=== PATIENT | female | born 1990 | race Caucasian/White ===

== ENCOUNTER → 2023-10-17 14:09 | Outpatient (REF) | payer OTHER, SELFPAY | LOC: RAD 14:09 | PROVIDERS: ATTENDING PHYSICIAN Obstetrics & Gynecology; FAMILY PHYSICIAN Family Medicine | DX: O26.859 Spotting complicating pregnancy, unspecified trimester (principal) | CPT/HCPCS: 76801 ==

== ENCOUNTER → 2024-02-12 10:39 | Outpatient (REF) | payer OTHER, SELFPAY | LOC: PNTC 10:39 | PROVIDERS: ATTENDING PHYSICIAN Obstetrics & Gynecology | DX: O24.419 Gestational diabetes mellitus in pregnancy, unspecified control (principal) | CPT/HCPCS: 76816 ==

== ENCOUNTER → 2024-02-13 09:50 | Outpatient (REF) | payer OTHER, SELFPAY ==
--- NOTE | 2024-02-13 10:25 | PN.DIAED06 ---
Meal Plan - Gestational
- Breakfast
Gestational Diabetes Meal Plan Name: 1800 calories
Breakfast - Total Carbohydrate (grams): 30
Breakfast - Starch Carbohydrate: 1
Breakfast - Fruit Carbohydrate: 0
Breakfast - Milk Carbohydrate: 1
Breakfast - Nonstarchy Vegetables: Yes
Breakfast - Meat/Protein: 1
Breakfast - Fat: 2
- Morning Snack
Morning Snack - Total Carbohydrate (grams): 30
Morning Snack - Starch Carbohydrate: 1
Morning Snack - Fruit Carbohydrate: 0
Morning Snack - Milk Carbohydrate: 1
Morning Snack - Nonstarchy Vegetables: Yes
Morning Snack - Meat/Protein: 0.5
Morning Snack - Fat: 0
- Lunch
Lunch - Total Carbohydrate (grams): 45
Lunch - Starch Carbohydrate: 2
Lunch - Fruit Carbohydrate: 1
Lunch - Milk Carbohydrate: 0
Lunch - Nonstarchy Vegetables: Yes
Lunch - Meat/Protein: 2
Lunch - Fat: 1
- Afternoon Snack
Afternoon Snack - Total Carbohydrate (grams): 30
Afternoon Snack - Starch Carbohydrate: 1
Afternoon Snack - Fruit Carbohydrate: 1
Afternoon Snack - Milk Carbohydrate: 0
Afternoon Snack - Nonstarchy Vegetables: Yes
Afternoon Snack - Meat/Protein: 1
Afternoon Snack - Fat: 0
- Dinner
Dinner - Total Carbohydrate (grams): 45
Dinner - Starch Carbohydrate: 2
Dinner - Fruit Carbohydrate: 0
Dinner - Milk Carbohydrate: 1
Dinner - Nonstarchy Vegetables: Yes
Dinner - Meat/Protein: 2
Dinner - Fat: 2
- Evening Snack
Evening Snack - Total Carbohydrate (grams): 30
Evening Snack - Starch Carbohydrate: 1
Evening Snack - Fruit Carbohydrate: 0
Evening Snack - Milk Carbohydrate: 1
Evening Snack - Nonstarchy Vegetables: Yes
Evening Snack - Meat/Protein: 1
Evening Snack - Fat: 1
--- NOTE | 2024-02-13 11:10 | PN.DIAED02 ---
Referral
Referred For: Gestational Diabetes Self-Management Training
PHI Release Authorization Form Signed: Yes
Care Plan
- Education Needs
Patient Education Needs: Preconception care//gestational diabetes management
Recommended Diabetes Training Program based on assessment: Gestational Diabetes Management
- Plan of Care
Plan of Care:
Kayley in today for new diagnosis GDM. EDC [birth year], female. 15 yr old,male and 3 yr old male at home. Discussed what is occuring in her body and importance to keep blood sugars well controlled to avoid complications (hypoglycemia, macrosomia).
States her insurance prefers the One Touch Verio Flex glucometer. Provided with and instructions given on the One Touch. Good return demonstration with result of 79 mg/dl, hrs post snack of 2 sweet pickles. Aware of proper testing technique, lancing
device set at 3. Discussed testing pattern- AC and 2 hr pp every meal as well expected results- FBS <95 mg/dl and 2 hr pp < 120 mg/dl. To call Lani at [facility] every Monday with results, phone number provided as well as log sheet to
record her results. She is aware that if testing 1 hr post meal that result should be <140 mg/dl and to record this on log sheet. Discussed macronutrients and importance of eating well balanced meals. 5'7', 135# pre , current weight
145-150#. Provided with 1800 cherelle ADA GDM meal plan and reviewed current eating preferences. Suggest adding a protein to breakfast when she consumes a bagel,, and to read nutritional fact label of bagel to see the quantity that fits into the meal
plan. Some mornings she may have an egg, to add a CHO to this meal. Typically has a salad with lunch, and some tortilla chips, will add fruit. Dinners are typically a protein, starch and vegetable. She is active and most days takes 3 walks, each
lasting approximately 30 minutes. She also will use 5# weights for her arms. Kayley is aware that having GDM puts her at risk for developing T2DM in the future, expected FBS result given. Discussed the need in some women for insulin as the
develops and phone number provided for any follow up questions.
== END ==
LOC: DES 09:50
PROVIDERS: ATTENDING PHYSICIAN Obstetrics & Gynecology
DX: O24.419 Gestational diabetes mellitus in pregnancy, unspecified control (principal)
CPT/HCPCS: 99078

== ENCOUNTER 2024-03-07 18:16 | Inpatient (IN) | payer OTHER, SELFPAY ==
[2024-03-07 12:06] VITALS: BP 102/63
[2024-03-07] MEDS: NSS 1000 IV ×2 (13:21→14:46)
[2024-03-07 13:35] LABS: Urine Albumin Trace (Neg - Trace); Urine Bilirubin Negative (Negative); Urine Character Clear (Clear); Urine Color Yellow; Urine Glucose Negative (Negative); Urine Ketone 3+ (Negative); Urine Leukocyte Trace (Negative); Urine Nitrite Negative (Negative); Urine Occult Blood Negative (Negative); Urine Specific Gravity 1.015 (<1.030); Urine Urobilinogen Negative (Neg - 1+)
[2024-03-07 13:49] LABS: % Basophils 0.3 % (0-2); % Immature Granulocytes 0.9 % (0-0.5); % Lymphocytes 6.2 % (20.5-51.1); % Neutrophils 82.6 % (42.2-75.2); Absolute Immature Granulocytes 0.1 10^3/uL (0-0.05); Absolute Lymphocytes 0.7 10^3/uL (1.2-3.4); Absolute Monocytes 1.1 10^3/uL (0.1-0.6); Absolute Neutrophils 9.3 10^3/uL (1.4-6.5); Mean Corp Hgb Conc. 34.4 g/dL (33.0-37.0); Mean Corpuscular Hgb 28.4 pg (27.0-31.0); Mean Corpuscular Volume 82.5 fL (81.0-99.0); Nucleated Red Blood Cells % 0 %; Platelet Count 179 10^3/uL (130-400); Red Blood Cell Count 3.88 10^6/uL (4.20-5.40); Red Cell Dist. Width 14.4 % (11.5-14.5); White Blood Cell Count 11.2 10^3/uL (4.8-10.8)
[2024-03-07 13:54] LABS: Lactic Acid 0.6 mmol/L (0.7-2.0)
--- NOTE | 2024-03-07 13:55 | ED.GENMED ---
History of Present Illness
General
Chief Complaint: Urinary Symptoms
Source: patient
Exam Limitations: none
Time Seen by Provider: 03/07/24 12:41
Nursing documentation reviewed up to this point in time: agreed with
History of Present Illness
History of Present Illness:
Patient presents to ED with secondary to 3-day history of persistent body ache, fatigue, decreased appetite, along with urinary frequency and dysuria. Patient is currently 32 weeks . Patient was evaluated by her SPOUT WORKER physician yesterday
and after initial urinalysis, patient was started on Macrobid. Patient has taken total of 3 doses since yesterday, without improvement symptoms. Denies vomiting or diarrhea. Denies fever. Denies coughing. Denies sore throat. Denies headache.
Denies dizziness. Denies abdominal pain. Denies vaginal bleeding. Patient states that she feels the baby move as usual.
Past History
Past History
ED Past Medical History: None
ED Past Surgical History: None
Social History
Tobacco: Non-smoker
Alcohol: None
Drug: None
Personal: Single
Living: with family
Employment: Employed
Review of Systems
Review of Systems
Allergies reviewed?: Yes
All Other Systems: ROS reviewed and negative except as documented in HPI and ROS
Constitutional: Reports fever and fatigue
EENT: Reports no symptoms
Respiratory: Reports no symptoms
Cardiac: Reports no symptoms
ABD/GI: Reports nausea and other (loss of appetite); Denies abdominal pain or diarrhea
: Reports dysuria and frequency
Musculoskeletal: Reports no symptoms
Skin: Reports no symptoms
Neurological: Reports no symptoms
Phy Exam
Physical Exam
Physical Exam:
Physical Exam
General: mild distress, not acutely ill. afebrile.
Head: nc/at. eomi
Neck: supple. no meningeal signs.
Heart: s1/s2 regular rate and rhythm, no murmur. equal radial pulses.
Lungs: no acute respiratory distress. clear bilaterally
Abdomen: normal bowel sounds. not tender.
Neuro: alert and oriented. no focal neurological deficits
Skin: no rash
Psychiatric: well kept. interactive and cooperative
Extremities: no edema. no calf tenderness.
Course
Orders/Labs/Results
Orders:
Orders
03/07/24 12:48
0.9% Sodium Chloride 1000 ml [Nss] 1,000 ml IV BOLUS
03/07/24 12:[address] Non Medication Order As Directed
Physician Order: Heart Rate
Above order entered?: Yes
03/07/24 13:22
Complete Blood Count/With Diff Urgent
Comprehensive Metabolic Panel Urgent
Lactic Acid Q4H
Comment: CANCEL 2nd LACTIC ACID IF 1st LACTIC ACID IS LESS THAN 2
Magnesium Urgent
Urinalysis Reflex To Culture Urgent
Date Specimen was Collected: 03/07/24
Time Specimen was Collected: 12:46
Urine Microscopic Reflex Cult Urgent
Blood Culture Q30M
ZULEIKA Source: Blood/Venous
Specimen Description:
Urine Culture Urgent
ZULEIKA Source: U
Specimen Description:
Date Specimen was Collected: 03/07/24
Time Specimen was Collected: 12:46
03/07/24 14:24
Add On - Microbiology Urgent
Tests Added?: urine culture
03/07/24 14:26
0.9% Sodium Chloride 1000 ml [Nss] 1,000 ml IV BOLUS
03/07/24 17:00
Lactic Acid Q4H
Comment: CANCEL 2nd LACTIC ACID IF 1st LACTIC ACID IS LESS THAN 2
03/07/24 17:04
Basic Metabolic Panel Urgent
Blood Culture Q30M
ZULEIKA Source: Blood/Venous
Specimen Description:
03/07/24 17:39
CefTRIAXone [Rocephin] 1,000 mg IV NOW STA
03/07/24 18:00
Lactated Ringers [Lr] 1,000 ml IV 100 mls/hr
Abnormal Lab Results
03/07/24 03/07/24
13:22 17:04
WBC 11.2 H 10^3/uL
(4.8-10.8)
RBC 3.88 L 10^6/uL
(4.20-5.40)
Hgb 11.0 L g/dL
(12.0-16.0)
Hct 32.0 L %
(37.0-47.0)
Abs Immat Gran (auto) 0.1 H 10^3/uL
(0-0.05)
Absolute Neuts (auto) 9.3 H 10^3/uL
(1.4-6.5)
Absolute Lymphs (auto) 0.7 L 10^3/uL
(1.2-3.4)
Absolute Monos (auto) 1.1 H 10^3/uL
(0.1-0.6)
Immature Gran % 0.9 H %
(0-0.5)
Neutrophils % 82.6 H %
(42.2-75.2)
Lymphocytes % 6.2 L %
(20.5-51.1)
Monocytes % 10.0 H %
(1.7-9.3)
Sodium 131 L mmol/L 132 L mmol/L
(135-145) (135-145)
Chloride 111 H mmol/L
(98-107)
Carbon Dioxide 9 L* mmol/L 8 L* mmol/L
(22-30) (22-30)
BUN 5 L mg/dl 5 L mg/dl
(7-17) (7-17)
Lactic Acid 0.6 L mmol/L
(0.7-2.0)
Calcium 8.0 L mg/dl
(8.4-10.2)
Alkaline Phosphatase 148 H U/L
(38-126)
Urine Ketones 3+ A
(Negative)
Leukocyte Esterase Rfl Trace A
(Negative)
Urine Bacteria (Reflex) Few A
(Negative)
03/07/24 13:22
03/07/24 17:04
Vital Signs
Initial and Last Documented VS:
Initial Vital Signs
Temp Pulse Resp BP Pulse Ox
97.5 F 95 18 102/63 97
03/07/24 12:06 03/07/24 12:06 03/07/24 12:06 03/07/24 12:06 03/07/24 12:06
Last Documented Vital Signs
Temp Pulse Resp BP Pulse Ox
97.9 F 110 18 110/64 100
03/07/24 19:33 03/07/24 19:33 03/07/24 19:33 03/07/24 19:33 03/07/24 16:31
MDM/Problems Addressed
MDM/Problems Addressed:
History and exam along with blood work, concerning for significant metabolic acidosis, likely secondary to dehydration along with ongoing infection, i.e. UTI versus recent dental procedure. Patient will be admitted for further evaluation. Patient
remains hemodynamically stable and neurologically intact during observation.
Discussed with on-call SPOUT WORKER physician, Dr. Sainz who will admit the patient. Hospitalist notified for medical consultation and recommendation.
*Critical Care Note
Total Time (30-74mins, 75-104mins- exclusive of procedures): Not Applicable
ED Attending Note
-
Portions of this chart may have been created with voice recognition software.� Occasional wrong word or��sound alike� substitutions may have occurred due to the inherent limitations of voice recognition software.
Discharge Plan
Departure
Patient Disposition: Admit
Date of Disposition: 03/07/24
Time of Disposition: 18:32
Presentation/result/management discussed w/ accepting MD/DO:
Discharge Problem:
Metabolic acidosis, UTI (urinary tract infection), Dehydration
Interventions
Interventions:
*Risk Screen - Suicide Last Done: 03/07/24 12:06
*General Assessment Last Done: 03/07/24 12:06
*Neglect/Abuse Screening Last Done: 03/07/24 12:06
ED- Fall Risk Assessment Last Done: 03/07/24 13:34
*ED COVID-19 Vaccine History Last Done: 03/07/24 12:06
*Nursing Disposition Last Done: 03/07/24 19:39
ED-Female Genitourinary Assessment Last Done: 03/07/24 13:35
Discharge Date and Time
Discharge Date/Time: 03/07/24 19:39
[2024-03-07 14:14] LABS: Urine Bacteria Few (Negative); Urine Red Blood Cell 0-2 /HPF (0-2); Urine Squamous Cell >30 /LPF (Few)
[2024-03-07 14:18] LABS: ALT (SGPT) 12 U/L (0-35); AST (SGOT) 21 U/L (14-36); Albumin 3.8 g/dl (3.5-5.0); Alkaline Phosphatase 148 U/L (38-126); Blood Urea Nitrogen 5 mg/dl (7-17); Calcium 9.1 mg/dl (8.4-10.2); Carbon Dioxide 9 mmol/L (22-30); Chloride 107 mmol/L (98-107); Glucose 78 mg/dl (70-99); Magnesium 1.9 mg/dl (1.6-2.3); Potassium 4.3 mmol/L (3.5-5.1); Sodium 131 mmol/L (135-145); Total Bilirubin 0.7 mg/dl (0.2-1.3); eGFR > 60.00
[2024-03-07 15:12] VITALS: BP 112/66
[2024-03-07 16:00] VITALS: BP 105/70
[2024-03-07 17:26] LABS: Blood Urea Nitrogen 5 mg/dl (7-17); Carbon Dioxide 8 mmol/L (22-30); Chloride 111 mmol/L (98-107); Glucose 75 mg/dl (70-99); Potassium 4.3 mmol/L (3.5-5.1); Sodium 132 mmol/L (135-145); eGFR > 60.00
[2024-03-07] MEDS: LR 1000 IV (17:54)
[2024-03-07] MEDS: ROCEPHIN 1000 MG IV (17:54)
--- NOTE | 2024-03-07 18:50 | CON.HOSP ---
Family Physician
-
Family Physician: Matti Ramos
Chief Complaint
-
urinary symptoms
History of Present Illness
33-year-old female who is at 32 weeks with gestational diabetes, no other past medical history presenting with burning with urination, fever up to 101, chills, body aches, dizziness and nausea for the past 3 days. She thought she was
having a UTI. She had nausea and a few episodes of vomiting today. Denies any abdominal pain or diarrhea. Denies any chest pain. She has been short of breath for the past few days.
She denies smoking, alcohol, drugs.
Medical History
Past Medical History
Past Medical History: Reports Other ( at 32 weeks with gestational diabetes)
Past Surgical History: Reports None
Social History
Tobacco: Non-smoker
Alcohol: None
Drug: None
Family History
Family History: Reviewed & Not Pertinent
Allergies / Home Medications
Allergies reflects when Allergies were last updated in [facility].
Home Medications with original date entered in [facility]
Allergy/Medication List:
Allergies
Allergy/AdvReac Type Severity Reaction Status Date / Time
No Known Allergies Allergy Verified 03/07/24 12:08
Home Medications
Vitamins 1 tab PO DAILY Supplement 11/18/10
acetaminophen 325 mg tablet 650 mg PO BIDPRN PRN mild pain 03/07/24
ferrous sulfate 1 tab PO MO 03/07/24
nitrofurantoin monohydrate/macrocrystals 100 mg capsule 100 mg PO BID 03/07/24
potassium 2 tab PO DAILY 03/07/24
Review of Systems
-
History Source: Patient
A 12 point Review of Systems was completed except as noted: Yes
Constitutional: Reports See HPI
EENT: Reports No Symptoms
Respiratory: Reports No Symptoms
Cardiac: Reports No Symptoms
Abdomen/GI: Reports See HPI
: Reports See HPI
Musculoskeletal: Reports No Symptoms
Skin: Reports No Symptoms
Neurological: Reports No Symptoms
Endocrine: Reports No Symptoms
Hematologic/Lymphatic: Reports No Symptoms
Psych: Reports No Symptoms
Physical Exam
Vital Signs
Vital Signs
Temp Pulse Resp BP Pulse Ox
97.9 F 93 18 105/70 100
03/07/24 17:40 03/07/24 15:12 03/07/24 12:06 03/07/24 16:00 03/07/24 16:31
Physical Exam
General: Well Developed, Well Nourished and No Apparent Distress
HEENT: Normocephalic, Moist Mucous Membranes and Atraumatic
Respiratory: Clear
Cardiac: S1/S2 and Regular Rhythm; Negative Murmur or Rub
GI: Soft, Non Tender, Non Distended and Normal Bowel Sounds
Rectal: Deferred by Provider
Musculoskeletal: No Clubbing, No Cyanosis and No Edema
Skin: Negative Rash
Neuro: Nonfocal/Grossly Intact
Laboratory Results
-
Laboratory Results
03/07/24 13:22
03/07/24 17:04
Lactic Acid 0.6 mmol/L (0.7-2.0) L 03/07/24 13:22
Total Bilirubin 0.7 mg/dl (0.2-1.3) 03/07/24 13:22
AST 21 U/L (14-36) 03/07/24 13:22
ALT 12 U/L (0-35) 03/07/24 13:22
Alkaline Phosphatase 148 U/L (38-126) H 03/07/24 13:22
Data Reviewed
-
Lab Data: Labs Reviewed
Old Records: Reviewed
Impression / Plan
-
IMPRESSION:
PLAN:
# Urinary tract infection
-Urinalysis not strongly convincing for UTI, shows 3-5 WBC, few bacteria, trace leukocyte esterase
-check Urine culture, blood cultures
-Ceftriaxone
# Non-anion gap metabolic acidosis, possibly RTA?
-Bicarbonate of 8
-Check lactic acid
-May be some degree of compensatory metabolic acidosis from respiratory alkalosis of but bicarbonate should not be this low
-Bicarbonate drip
-Nephrology consulted
# 32 weeks
-Management as per OB
#Gestational diabetes
-Not on medication
[2024-03-07] MEDS: SODIUM BICARBONATE 1150 MEQ IV (19:29)
[2024-03-07 19:33] VITALS: BP 110/64
[2024-03-07] MEDS: TYLENOL 1000 MG PO (20:02)
[2024-03-08 06:23] LABS: % Basophils 0.3 % (0-2); % Eosinophils 0.4 % (0-6); % Immature Granulocytes 0.4 % (0-0.5); % Lymphocytes 7.8 % (20.5-51.1); % Monocytes 8.5 % (1.7-9.3); % Neutrophils 82.6 % (42.2-75.2); Absolute Lymphocytes 0.5 10^3/uL (1.2-3.4); Absolute Monocytes 0.6 10^3/uL (0.1-0.6); Absolute Neutrophils 5.5 10^3/uL (1.4-6.5); Hematocrit 30.1 % (37.0-47.0); Mean Corp Hgb Conc. 33.2 g/dL (33.0-37.0); Mean Corpuscular Hgb 27.8 pg (27.0-31.0); Mean Corpuscular Volume 83.6 fL (81.0-99.0); Mean Platelet Volume 9.1 fL (7.4-10.4); Nucleated Red Blood Cells % 0 %; Platelet Count 187 10^3/uL (130-400); Red Cell Dist. Width 14.4 % (11.5-14.5); White Blood Cell Count 6.7 10^3/uL (4.8-10.8)
[2024-03-08 06:45] LABS: ALT (SGPT) 11 U/L (0-35); AST (SGOT) 18 U/L (14-36); Albumin 3.2 g/dl (3.5-5.0); Alkaline Phosphatase 147 U/L (38-126); Blood Urea Nitrogen 4 mg/dl (7-17); Calcium 8.4 mg/dl (8.4-10.2); Carbon Dioxide 13 mmol/L (22-30); Chloride 108 mmol/L (98-107); Glucose 95 mg/dl (70-99); Potassium 3.7 mmol/L (3.5-5.1); Sodium 132 mmol/L (135-145); Total Bilirubin 0.5 mg/dl (0.2-1.3); Total Protein 6.1 g/dl (6.3-8.2); eGFR > 60.00
[2024-03-08] MEDS: SODIUM BICARBONATE 1150 MEQ IV ×2 (06:53→18:40)
[2024-03-08] MEDS: TYLENOL 1000 MG PO ×3 (06:55→21:20)
--- NOTE | 2024-03-08 09:42 | W.PN.HOSP.TC ---
Today's Communication/Plan
-
see A/P
Assessment / Plan
Assessment / Plan
HPI: 33-year-old female who is at 32 weeks with gestational diabetes, no other past medical history; p/w burning sensation with urination, fever up to 101, chills, body aches, dizziness and nausea for the past 3 days. She thought she was
having a UTI. She had nausea and a few episodes of vomiting on DOA. Denies any abdominal pain or diarrhea. Denies any chest pain. She has been short of breath for the past few days.
She denies smoking, alcohol, drugs.
A/P:
# Urinary tract infection
Urinalysis not strongly convincing for UTI, shows 3-5 WBC, few bacteria, trace leukocyte esterase
Follow Urine culture, blood cultures
Cont Ceftriaxone
ID CS
# Non-anion gap metabolic acidosis, possibly RTA?
May be some degree of compensatory metabolic acidosis from respiratory alkalosis of but bicarbonate should not be this low
Bicarbonate at 13 today
Cont Bicarbonate drip
Nephrology consulted
# 32 weeks
Management as per OB
#Gestational diabetes
Not on medication
Anticipated Discharge: 24 - 48 hours
Subjective/Interval History
-
Date of Service: March 08, 2024
Objective Data
-
Labs:
Laboratory Results
03/08/24
05:32
WBC 6.7
Hgb 10.0 L
Hct 30.1 L
Plt Count 187
Sodium 132 L
Potassium 3.7
Chloride 108 H
Carbon Dioxide 13 L*
BUN 4 L
Creatinine 0.5 L
Glucose 95
Calcium 8.4
Total Bilirubin 0.5
AST 18
ALT 11
Alkaline Phosphatase 147 H
Vital Signs:
Vital Signs
Temp Pulse Resp BP Pulse Ox
36.6 C 110 18 110/64 100
03/07/24 19:33 03/07/24 19:33 03/07/24 19:33 03/07/24 19:33 03/07/24 16:31
Review of Systems
-
All other systems: Reviewed and negative
Genitourinary: Denies Dysuria (resolved)
Physical Exam
-
General: Well Developed, Well Nourished, No Apparent Distress, Comfortable and Conversant; Negative Respiratory Distress
HEENT: Normocephalic, Atraumatic, Nose Appears Normal and Ears Appear Normal; Negative Oxygen
Respiratory: Clear to Auscultation and Non Labored Respirations; Negative Accessory Resp Muscle Use
Cardiac: Regular Rhythm and S1/S2
Skin: Warm and Dry
Neuro: Awake, Alert, Oriented and AO x 3
Psych: Calm and Intact Judgement/Insight
Data Reviewed
-
Labs: Labs Reviewed by me
--- NOTE | 2024-03-08 11:28 | W.CON.NEPH ---
Consultation
-
Date/Time Consultation Requested: March 08, 2024 7 AM
Date/Time Consultation Performed: March 08, 2024 9 AM
Requesting Provider: Dr. Sainz
Performing Provider: Dr. Horton
Reason for Consultation: Metabolic acidosis
Medical History
-
Chief Complaint: Back pain dysuria
History of Present Illness:
This is a 33-year-old female who is and currently 32 weeks into her current . She had been doing fairly well with the only exception of noting gestational diabetes. Beginning on Monday she had begun feeling not quite as well and
reported some dysuria and cloudy urine. On Monday her symptoms worsened with decreased appetite malaise and continued urinary symptoms. She was started on antibiotics, Macrobid for UTI. However, over the next several days her symptoms did not
improve and she ultimately came to the emergency room for evaluation. She was noted to have a significant metabolic acidosis with a bicarbonate level of 8 and was brought in for observation. We are asked to assist with management of the metabolic
acidosis.
Past Medical History
Social History
Tobacco: Non-Smoker
Alcohol: None
Family History
No CKD
Allergies / Home Medications
Allergy/AdvReac Type Severity Reaction Status Date / Time
No Known Allergies Allergy Verified 03/07/24 12:08
�Medication �Instructions �Recorded �Confirmed �Type
Vitamins 1 tab PO DAILY Supplement 11/18/10 03/07/24 History
acetaminophen 325 mg tablet 650 mg PO BIDPRN PRN mild pain 03/07/24 03/07/24 History
ferrous sulfate 1 tab PO MO Supplement 03/07/24 03/07/24 History
nitrofurantoin 100 mg PO BID Infection 03/07/24 03/07/24 History
monohydrate/macrocrystals 100 mg
capsule
potassium 2 tab PO DAILY Supplement 03/07/24 03/07/24 History
Review of Systems
-
Mild right lower back discomfort, aching. Dysuria has improved, appetite is improving
All other systems: Negative unless noted
Physical Exam
Vital Signs
Vital Signs
Temp Pulse Resp BP Pulse Ox
97.9 F 110 18 110/64 100
03/07/24 19:33 03/07/24 19:33 03/07/24 19:33 03/07/24 19:33 03/07/24 16:31
Lab Results
WBC 6.7 10^3/uL (4.8-10.8) 03/08/24 05:32
RBC 3.60 10^6/uL (4.20-5.40) L 03/08/24 05:32
Hgb 10.0 g/dL (12.0-16.0) L 03/08/24 05:32
Hct 30.1 % (37.0-47.0) L 03/08/24 05:32
Plt Count 187 10^3/uL (130-400) 03/08/24 05:32
Sodium 132 mmol/L (135-145) L 03/08/24 05:32
Potassium 3.7 mmol/L (3.5-5.1) 03/08/24 05:32
Chloride 108 mmol/L (98-107) H 03/08/24 05:32
Carbon Dioxide 13 mmol/L (22-30) L* 03/08/24 05:32
BUN 4 mg/dl (7-17) L 03/08/24 05:32
Creatinine 0.5 mg/dL (0.6-1.0) L 03/08/24 05:32
eGFR > 60.00 03/08/24 05:32
Glucose 95 mg/dl (70-99) 03/08/24 05:32
Calcium 8.4 mg/dl (8.4-10.2) 03/08/24 05:32
Albumin 3.2 g/dl (3.5-5.0) L 03/08/24 05:32
Physical Exam
Patient is awake alert oriented and in no distress. Mood and affect were pleasant, insight and judgment were good. Pupils are equal round and reactive to light, extraocular movements are intact, sclera were anicteric. Hearing was normal, ears and
nose are intact. Oropharynx was clear. Neck was supple with trachea midline and no thyromegaly. Heart was regular rate and rhythm without rubs. Lower extremities without edema. Lungs were clear to auscultation bilaterally and with normal
excursion. Abdomen was soft, nontender, with normal active bowel sounds, and no hepatosplenomegaly. Skin was without rash and with normal turgor.
Data Reviewed
-
Labs: Labs Reviewed by me (Hemoglobin 10.0, sodium 132, carbon dioxide 13, BUN 4, creatinine 0.5, urinalysis bland except trace leuk esterase, 3+ ketone, few bacteria, greater than 30 squamous cells, trace albumin)
Assessment/Plan
-
Assessment
32-week
Metabolic acidosis
Hyponatremia
Albuminuria
Ketoacidosis
Plan
At this point it would certainly appear that her acidosis was based on decreased intake in the setting of gestational diabetes with development of ketoacidosis.
IV fluids with bicarbonate will be continued at this time her appetite is improving
And I expect that her acidosis will resolve in the next 24-48 hours
Follow BMP
Antibiotics for UTI will continue
Hyponatremia is appropriate for her
--- NOTE | 2024-03-08 12:48 | CON.ID ---
Consultation
-
Date/Time Consultation Requested: 03/08/24 7:17
Date/Time Consultation Performed: 03/08/24 12:48
Requesting Provider: Dr Lopez
Performing Provider: Dr Ingram
Reason for Consultation: UTI,
Chief Complaint / Past History
Chief Complaint
dysuria
History of Present Illness
Ms Moore is a 33 year old female third trimester (32 weeks) complicated by gestational diabetes who presented here last night fever fever to 101, chills, myalgias, low back pain, dysuria, urinary urgency, nausea with vomiting and
dizziness x3 days. No abdominal pain, vaginal bleeding, diarrhea. +dyspnea. Normal movements felt. She was initially started on macrobid and has taken 3 doses since 03/06 without improvement. Reports symptoms were similar to a previous UTI.
Since arrival here she has been afebrile, bp stable, HR 80s-110, wbc 11.2 yesterday today 6.7, hgb 10, plt 187, L shift is noted, CO2 initially 8 now 13, cr 0.5, na 132, lactic acid initially 0.6, t bili 0.5, ast 18, alt 11, alk phos 147, UA no
pyuria 3-5 wbc/hpr and >30 squamous cells, reports outpatient urine culture was sent out she is not sure to what lab. Shes had an OB US: 02/11 notable for subchorionic hemorrhage. urine culture from 2016 on file - not relevant. 03/07/24 urine culture
is pending. Seen by nephrology and note the opinion that 'At this point it would certainly appear that her acidosis was based on decreased intake in the setting of gestational diabetes with development of ketoacidosis' with expected resolution over
the next day or two.
Past History
Additional Past Medical History:
at 32 weeks with gestational diabetes
Additional Past Surgical History:
None
Allergy History:
No Known Allergies Allergy (Verified 03/07/24 12:08)
Medications Reviewed: Yes
Social History
Tobacco: Non-Smoker
Alcohol: None
Drug: None
Family History
Family History: Not Pertinent
Review of Systems
Review of Systems
General: Chills; Negative Fever
All systems: All other systems were reviewed and were negative
Vital Signs
Temp Pulse Resp BP Pulse Ox
97.9 F 110 18 110/64 100
03/07/24 19:33 03/07/24 19:33 03/07/24 19:33 03/07/24 19:33 03/07/24 16:31
Physical Exam
Physical Exam
Constitutional: No Acute Distress
Cardiovascular: Regular Rate and S1/S2; Negative Murmur or Rub
Pulmonary: Clear and Symmetric; Negative Wheezes, Rales or Rhonchi
Gastrointestinal: Soft, Non Tender, Non Distended and Normal Bowel Sounds
Genito-Urinary: Negative Suprapubic Tenderness or CVA Tenderness
Skin: Warm and Dry; Negative Rash or Jaundice
Lab / Diagnostic Study Results
03/08/24 05:32
03/08/24 05:32
Abs Immat Gran (auto) 0.0 10^3/uL (0-0.05) 03/08/24 05:32
Absolute Neuts (auto) 5.5 10^3/uL (1.4-6.5) 03/08/24 05:32
Absolute Lymphs (auto) 0.5 10^3/uL (1.2-3.4) L 03/08/24 05:32
Absolute Monos (auto) 0.6 10^3/uL (0.1-0.6) 03/08/24 05:32
Absolute Basos (auto) 0.0 10^3/uL (0-0.2) 03/08/24 05:32
Immature Gran % 0.4 % (0-0.5) 03/08/24 05:32
Neutrophils % 82.6 % (42.2-75.2) H 03/08/24 05:32
Lymphocytes % 7.8 % (20.5-51.1) L 03/08/24 05:32
Monocytes % 8.5 % (1.7-9.3) 03/08/24 05:32
Eosinophils % 0.4 % (0-6) 03/08/24 05:32
Basophils % 0.3 % (0-2) 03/08/24 05:32
Lactic Acid Cancelled 03/07/24 17:00
Ur Squamous Epith Cells >30 /LPF (Few) 03/07/24 13:22
Microbiology Results
Micro:
03/07/24 17:04 Blood Culture - Pending
Blood/Venous
03/07/24 13:22 Urine Culture - Pending
Urine
03/07/24 13:22 Blood Culture - Pending
Blood/Venous
Assessment / Plan
Probable Pyelonephritis
32-week
Metabolic acidosis
Hyponatremia
Albuminuria
Ketoacidosis
- outpatient UA and culture from monday03/06/24: >30 wbc/hpf, many bacteria, urine culture 100K GNR (lab erin)
- here, ua without pyuria after 1.5 days of macrobid, however symptoms are suggestive of UTI
- repeat urine culture 03/07 in progress
- blood cultures x2 in progress
- continue ceftriaxone
- follow clinically
Care Review
Plan reviewed with: Nurse (vitals)
[2024-03-08] MEDS: STERILE WATER FOR INJECTION 10 ML IV (17:56)
[2024-03-08] MEDS: ROCEPHIN 1000 MG IV (17:56)
[2024-03-09] MEDS: TYLENOL 1000 MG PO ×2 (04:13→16:05)
[2024-03-09 04:29] LABS: Hematocrit 26.2 % (37.0-47.0); Hemoglobin 9.2 g/dL (12.0-16.0); Mean Corp Hgb Conc. 35.1 g/dL (33.0-37.0); Mean Corpuscular Hgb 28.2 pg (27.0-31.0); Mean Corpuscular Volume 80.4 fL (81.0-99.0); Platelet Count 173 10^3/uL (130-400); Red Blood Cell Count 3.26 10^6/uL (4.20-5.40); Red Cell Dist. Width 14.4 % (11.5-14.5)
[2024-03-09 04:55] LABS: Blood Urea Nitrogen 4 mg/dl (7-17); Calcium 8.2 mg/dl (8.4-10.2); Carbon Dioxide 27 mmol/L (22-30); Chloride 101 mmol/L (98-107); Glucose 110 mg/dl (70-99); Potassium 2.9 mmol/L (3.5-5.1); Sodium 135 mmol/L (135-145); eGFR > 60.00
[2024-03-09] MEDS: SODIUM BICARBONATE 1150 MEQ IV (06:16)
[2024-03-09 07:46] VITALS: BMI 23.2
[2024-03-09] MEDS: KCL 40 MEQ PO (08:05)
[2024-03-09] MEDS: DILAUDID 2 MG PO (08:05)
[2024-03-09 08:15] LABS: Magnesium 1.8 mg/dl (1.6-2.3)
--- NOTE | 2024-03-09 08:26 | W.PN.NEPH.PH ---
Today's Communication / Plan
-
K
Assessment/Plan
-
Assessment
32-week
Metabolic acidosis
Hyponatremia
Albuminuria
Ketoacidosis
left upper root canal 03/04
Plan
cap IVF
replete K, use IV rider for some additional volume given low BP this am
follow BMP
pain management
-
-
Date of Service: March 09, 2024
CC / HPI / ROS
-
Chief Complaint:
metabolic acidosis
History of Present Illness:
acidosis resolved with eating/ivf
K low at 2.9
BP low this am
Review of Systems:
WRIGHT and left ear pain
appetite good
Labs
-
Labs:
WBC 5.0 10^3/uL (4.8-10.8) 03/09/24 04:12
RBC 3.26 10^6/uL (4.20-5.40) L 03/09/24 04:12
Hgb 9.2 g/dL (12.0-16.0) L 03/09/24 04:12
Hct 26.2 % (37.0-47.0) L 03/09/24 04:12
Plt Count 173 10^3/uL (130-400) 03/09/24 04:12
Sodium 135 mmol/L (135-145) 03/09/24 04:12
Chloride 101 mmol/L (98-107) 03/09/24 04:12
Carbon Dioxide 27 mmol/L (22-30) 03/09/24 04:12
BUN 4 mg/dl (7-17) L 03/09/24 04:12
Creatinine 0.5 mg/dL (0.6-1.0) L 03/09/24 04:12
eGFR > 60.00 03/09/24 04:12
Glucose 110 mg/dl (70-99) H 03/09/24 04:12
Calcium 8.2 mg/dl (8.4-10.2) L 03/09/24 04:12
Albumin 3.2 g/dl (3.5-5.0) L 03/08/24 05:32
Physical Exam
-
Vital Signs:
Vital Signs
Temp Pulse Resp BP Pulse Ox
97.9 F 110 18 110/64 100
03/07/24 19:33 03/07/24 19:33 03/07/24 19:33 03/07/24 19:33 03/07/24 16:31
Cardiovascular:: Regular rate and rhythm
Respiratory:: Bilateral: CTA
Lung Excursion:: Normal
Abdomen:: Nontender and Soft
Bowel Sounds:: Normal
Extremity Edema:: None: Bilateral:
--- NOTE | 2024-03-09 11:13 | W.PN.ID1 ---
Date of Service
Date of Service: March 09, 2024
Today's Communication
continue ceftriaxone pending outside Ucx result.
Assessment / Plan
Probable Pyelonephritis
32-week
Metabolic acidosis
Hyponatremia
Albuminuria
Ketoacidosis
- outpatient UA and culture from monday03/06/24: >30 wbc/hpf, many bacteria, urine culture 100K GNR (lab erin) - still pending as of today
- here 03/07 ua without pyuria after 1.5 days of macrobid, however symptoms are suggestive of UTI
Urine cx here 30K lactobacillus - contaminant from vaginal gloria. Also UA >30 sq epithelial cells suggests not clean-catch specimen
- blood cultures x2 in progress
- continue ceftriaxone pending outside Ucx result.
- follow clinically
Chief Complaint
-: UTI
Subjective / Review of Systems
Feeling better.
Vital Signs / Physical Exam
Vital Signs
Vital Signs
Temp Pulse Resp BP Pulse Ox
97.9 F 110 18 110/64 100
03/07/24 19:33 03/07/24 19:33 03/07/24 19:33 03/07/24 19:33 03/07/24 16:31
Physical Exam
Constitutional: No Acute Distress and Comfortable
Genito-Urinary: Negative CVA Tenderness
Objective Data
Lab Data
Lab Results
03/09/24 04:12
Lactic Acid Cancelled 03/07/24 17:00
Total Bilirubin 0.5 mg/dl (0.2-1.3) 03/08/24 05:32
AST 18 U/L (14-36) 03/08/24 05:32
ALT 11 U/L (0-35) 03/08/24 05:32
Alkaline Phosphatase 147 U/L (38-126) H 03/08/24 05:32
Most recent labs reviewed.
Micro Results:
03/07/24 17:04 Blood Culture - Preliminary
Blood/Venous No Growth in 24 hours- Final report to follow
03/07/24 13:22 Urine Culture - Final
Urine Lactobacillus species
03/07/24 13:22 Blood Culture - Preliminary
Blood/Venous No Growth in 24 hours- Final report to follow
--- NOTE | 2024-03-09 11:22 | W.PN.HOSP.TC ---
Today's Communication/Plan
-
see A/P
Assessment / Plan
Assessment / Plan
HPI: 33-year-old female who is at 32 weeks with gestational diabetes, no other past medical history; p/w burning sensation with urination, fever up to 101, chills, body aches, dizziness and nausea for the past 3 days. She thought she was
having a UTI. She had nausea and a few episodes of vomiting on DOA. Denies any abdominal pain or diarrhea. Denies any chest pain. She has been short of breath for the past few days.
She denies smoking, alcohol, drugs.
A/P:
# Urinary tract infection
Admission urinalysis not strongly convincing for UTI
Pending outside Urine culture result.
continue ceftriaxone for now
Urine culture from this admission positive for lactobacillus (likely contaminant)
blood culture negative
ID on board
# Non-anion gap metabolic acidosis, resolved
s/p Bicarbonate drip
Nephrology following
# Hypokalemia
replete lyte and recheck level
# 32 weeks
Management as per OB
#Gestational diabetes
Not on medication
Anticipated Discharge: Within 24 hours
Subjective/Interval History
-
Date of Service: March 09, 2024
Objective Data
-
Labs:
Laboratory Results
03/09/24 03/09/24
04:12 14:00
WBC 5.0
Hgb 9.2 L
Hct 26.2 L
Plt Count 173
Sodium 135
Potassium 2.9 L Pending
Chloride 101
Carbon Dioxide 27
BUN 4 L
Creatinine 0.5 L
Glucose 110 H
Calcium 8.2 L
Vital Signs:
Vital Signs
Temp Pulse Resp BP Pulse Ox
36.6 C 110 18 110/64 100
03/07/24 19:33 06/27/24 19:33 03/07/24 19:33 03/07/24 19:33 03/07/24 16:31
Review of Systems
-
All other systems: Reviewed and negative
Genitourinary: Denies Dysuria (resolved)
Physical Exam
-
General: Well Developed, Well Nourished, No Apparent Distress, Comfortable and Conversant; Negative Respiratory Distress
HEENT: Normocephalic, Atraumatic, Nose Appears Normal and Ears Appear Normal; Negative Oxygen
Respiratory: Clear to Auscultation and Non Labored Respirations; Negative Accessory Resp Muscle Use
Cardiac: Regular Rhythm and S1/S2
Skin: Warm and Dry
Neuro: Awake, Alert, Oriented and AO x 3
Psych: Calm and Intact Judgement/Insight
Data Reviewed
-
Labs: Labs Reviewed by me
[2024-03-09] MEDS: KCL 270 MEQ IV (12:08)
[2024-03-09] MEDS: FEOSOL 325 MG PO (12:09)
== END 2024-03-09 17:15 | disposition home or self-care (01) | DRG 832 ==
LOC: LDRP 18:16
PROVIDERS: Internal Medicine; ADMITTING PHYSICIAN Obstetrics & Gynecology; EMERGENCY PHYSICIAN Emergency Medicine; FAMILY PHYSICIAN Family Medicine; OTHER PHYSICIAN Hospitalist; OTHER PHYSICIAN Specialist; OTHER PHYSICIAN Student in an Organized Health Care Education/Training Program
DX: O23.43 Unspecified infection of urinary tract in pregnancy, third trimester (principal); E87.1 Hypo-osmolality and hyponatremia; E87.20 Acidosis, unspecified; N39.0 Urinary tract infection, site not specified; O12.13 Gestational proteinuria, third trimester; E87.29 Other acidosis; Z3A.32 32 weeks gestation of pregnancy; O23.03 Infections of kidney in pregnancy, third trimester; O24.410 Gestational diabetes mellitus in pregnancy, diet controlled; O99.013 Anemia complicating pregnancy, third trimester; D64.9 Anemia, unspecified; R30.0 Dysuria; R35.0 Frequency of micturition; E86.0 Dehydration; O99.343 Other mental disorders complicating pregnancy, third trimester; E87.6 Hypokalemia; F32.A Depression, unspecified; Z87.440 Personal history of urinary (tract) infections; Z98.82 Breast implant status
CPT/HCPCS: 80048; 80053; 81003; 81015; 83605; 83735; 85025; 85027; 87040; 87086; 96361; 96374; 96375; 99285

== ENCOUNTER → 2024-03-11 09:51 | Outpatient (REF) | payer OTHER, SELFPAY | LOC: PNTC 09:51 | PROVIDERS: ATTENDING PHYSICIAN Obstetrics & Gynecology | DX: O24.419 Gestational diabetes mellitus in pregnancy, unspecified control (principal); Z34.90 Encounter for supervision of normal pregnancy, unspecified, unspecified trimester | CPT/HCPCS: 76816 ==

== ENCOUNTER → 2024-04-15 10:18 | Outpatient (REF) | payer OTHER, SELFPAY | LOC: PNTC 10:18 | PROVIDERS: ATTENDING PHYSICIAN Obstetrics & Gynecology | DX: O24.419 Gestational diabetes mellitus in pregnancy, unspecified control (principal) | CPT/HCPCS: 76816 ==

== ENCOUNTER 2024-04-19 09:07 | Inpatient (IN) | payer OTHER, SELFPAY ==
[2024-04-19 09:11] VITALS: BP 122/78; BMI 23.5
[2024-04-19] MEDS: LR 1000 IV ×2 (09:15→10:04)
[2024-04-19 09:40] LABS: % Basophils 0.4 % (0-2); % Eosinophils 1.1 % (0-6); % Immature Granulocytes 0.4 % (0-0.5); % Lymphocytes 18.5 % (20.5-51.1); % Monocytes 7.6 % (1.7-9.3); Absolute Eosinophils 0.1 10^3/uL (0-0.7); Absolute Monocytes 0.4 10^3/uL (0.1-0.6); Hematocrit 32.3 % (37.0-47.0); Hemoglobin 11.4 g/dL (12.0-16.0); Mean Corp Hgb Conc. 35.3 g/dL (33.0-37.0); Mean Corpuscular Hgb 28.1 pg (27.0-31.0); Mean Corpuscular Volume 79.8 fL (81.0-99.0); Mean Platelet Volume 8.8 fL (7.4-10.4); Nucleated Red Blood Cells % 0 %; Platelet Count 235 10^3/uL (130-400); Red Blood Cell Count 4.05 10^6/uL (4.20-5.40); Red Cell Dist. Width 15.9 % (11.5-14.5); White Blood Cell Count 5.5 10^3/uL (4.8-10.8)
[2024-04-19] MEDS: FENTANYL/BUPIVACAINE 100 EPIDURAL (09:42)
[2024-04-19] MEDS: SUBLIMAZE 100 MCG EPIDURAL (09:42)
[2024-04-19] MEDS: PITOCIN 30 UNITS/NSS 500 ML IV (12:00)
[2024-04-20 05:37] LABS: Hematocrit 29.8 % (37.0-47.0)
[2024-04-20] MEDS: PRENATAL PLUS 1 TABLET PO (08:53)
[2024-04-23 13:58] LABS: Syphilis/T. pallidum Ab Reflex Negative (Negative)
== END 2024-04-20 14:00 | disposition home or self-care (01) | DRG 806 ==
LOC: LDRP 09:07
PROVIDERS: ADMITTING PHYSICIAN Obstetrics & Gynecology; FAMILY PHYSICIAN Family Medicine
PROC: 10E0XZZ Delivery of Products of Conception, External Approach (ICD-10-PCS; 2024-04-19)
PROC: 6A550ZT Pheresis of Cord Blood Stem Cells, Single (ICD-10-PCS; 2024-04-19)
PROC: 10907ZC Drainage of Amniotic Fluid, Therapeutic from Products of Conception, Via Natural or Artificial Opening (ICD-10-PCS; 2024-04-19)
DX: O77.0 Labor and delivery complicated by meconium in amniotic fluid (principal); O98.32 Other infections with a predominantly sexual mode of transmission complicating childbirth; Z37.0 Single live birth; O24.420 Gestational diabetes mellitus in childbirth, diet controlled; O99.344 Other mental disorders complicating childbirth; F32.A Depression, unspecified; Z3A.38 38 weeks gestation of pregnancy; A63.0 Anogenital (venereal) warts; Z98.82 Breast implant status; Z87.440 Personal history of urinary (tract) infections
CPT/HCPCS: 88307; 36415; 85014; 85018; 85025; 86780; 86850; 86900; 86901